=== PATIENT | female | born 1980 | race Caucasian/White ===

== ENCOUNTER 2018-05-21 17:40 | Emergency (ER) | payer OTHER ==
[~2018-05-21] VITALS: Ht 160 cm; Wt 57.1 kg
[~2018-05-21 17:40] MED LIST: AMOX500; Amoxicillin500 MG PO; CITA20; FERR325; HYDACE5 PO; IBUP600 PO; IBUP800 PO; Norco 5-325 Ta1 EACH PO; OXYACE5T PO; Peridex480 ML PO; RXHYDACE PO; RXTRAM50 PO; SILSUL1TC TOP; TRAM50 PO; Verotin-Gr Cap1 EACH
[2018-05-22] MEDS ORDERED: Bactrim Ds Tab1 EACH PO (09:49)
== END 2018-05-21 19:49 | disposition home or self-care (01) ==
LOC: ER 17:40
DX: L03.113 Cellulitis of right upper limb (principal); L02.511 Cutaneous abscess of right hand; Z88.5 Allergy status to narcotic agent; Z79.899 Other long term (current) drug therapy; F17.210 Nicotine dependence, cigarettes, uncomplicated
CPT/HCPCS: 99282

== ENCOUNTER 2019-07-11 17:28 | Emergency (ER) | payer OTHER ==
[~2019-07-11 17:28] MED LIST changes: +Bactrim Ds Tab1 EACH PO
== END 2019-07-11 17:47 | disposition left against medical advice (07) ==
LOC: ER 17:28
DX: Z53.21 Procedure and treatment not carried out due to patient leaving prior to being seen by health care provider (principal)